=== PATIENT | female | born 1930 | race Caucasian/White ===

== ENCOUNTER 2019-08-05 10:11 | Emergency (ER) | payer MEDICARE ==
[2019-08-05] MEDS ORDERED: Sodium Chloride 0.9% 10 ML Syringe FLUSH PRN (11:06)
--- NOTE | 2019-08-05 11:30 | EDM.PDOC ---
ED HPI GENERAL MEDICAL PROBLEM - General Chief Complaint: Syncope Stated Complaint: SYNCOPE Time Seen by Provider: 08/05/19 11:06 Source of Information: Reports: Patient, RN Notes Reviewed History Limitations: Reports: No Limitations - History of Present Illness INITIAL COMMENTS - FREE TEXT/NARRATIVE: Patient is an 89-year-old female who presents to the ED with her granddaughter for the evaluation of a syncopal episode x1 this morning. The granddaughter states that her grandmother walked from her own apartment, as she lives on a floor below her daughter, and was acting normal, she went to sit at the dinner table, and was waiting to eat breakfast, when the patient slumped over in her chair, but she did not fall. They believe she was unresponsive for about 15 minutes. The granddaughter notes that her blood sugar about 1/2-hour before the incident was around 121, they have a pretty good log of blood pressures, that they have been taking at home, and she is anywhere from the low 100s systolically to 120s systolically. Granddaughter notes that patient has a history of dementia as well, and has issues with short-term memory. Granddaughter states that the patient also has been eating very little, and feels like she is a little bit more sleepy or fatigued than normal, she is denying any fever/chills, cough/shortness of breath, chest pain, or pain anywhere else in her body. Patient's primary care provider is Dr. Howard. The granddaughter states that she thinks she is on 5 different blood pressure medications, including carvedilol, hydrochlorothiazide, Spironolactone, and she could not remember the other names of the other medications. - Related Data Allergies Allergy/AdvReac Type Severity Reaction Status Date / Time No Known Allergies Allergy Verified 08/05/19 10:35 Past Medical History HEENT History: Reports: Impaired Vision Cardiovascular History: Reports: High Cholesterol, Hypertension [employer] WORK[employer] History: Reports: Endocrine/Metabolic History: Reports: Diabetes, Type II - Past Surgical History Female Surgical History: Reports: Hysterectomy Social & Family History - Tobacco Use Smoking Status *Q: Never Smoker - Caffeine Use Caffeine Use: Reports: Coffee - Recreational Drug Use Recreational Drug Use: No ED ROS GENERAL - Review of Systems Review Of Systems: See Below Constitutional: Reports: Fatigue (generalized over 1 week), Decreased Appetite (generalized, not increased from normal). Denies: Fever, Chills Respiratory: Denies: Shortness of Breath, Cough Cardiovascular: Reports: Blood Pressure Problem (lower blood pressures at home), Syncope (SEE HPI). Denies: Chest Pain, Lightheadedness GI/Abdominal: Denies: Abdominal Pain, Constipation, Diarrhea, Nausea, Vomiting : Reports: Other (no increased odor). Denies: Dysuria, Frequency, Urgency Neurological: Reports: Syncope (SEE HPI). Denies: Confusion, Dizziness, Headache - Physical Exam Exam: See Below Exam Limited By: No Limitations General Appearance: Alert, WD/WN, No Apparent Distress Eye Exam: Bilateral Eye: EOMI, Normal Inspection, PERRL Ears: Normal External Exam Nose: Normal Inspection Throat/Mouth: Normal Inspection, Normal Lips, Normal Teeth, Normal Gums, Normal Oropharynx, Normal Voice, No Airway Compromise Head Exam: Atraumatic, Normocephalic Neck: Normal Inspection Respiratory/Chest: No Respiratory Distress, Lungs Clear, Normal Breath Sounds, No Accessory Muscle Use, Chest Non-Tender Cardiovascular: Normal Peripheral Pulses, Regular Rate, Rhythm, No Murmur GI/Abdominal: Normal Bowel Sounds, Soft, Non-Tender, No Distention, No Mass Neuro Exam (Abbreviated): Alert, Oriented, Normal Cognition, No Motor/Sensory Deficits Extremities: Normal Inspection, Normal Capillary Refill Psychiatric: Normal Affect, Normal Mood Skin Exam: Warm, Dry, Intact, Normal Color, No Rash EKG INTERPRETATION EKG Date: 08/05/19 Time: 10:40 Rhythm: Other (Sinus bradycardia) Rate (Beats/Min): 44 [place]: LAD-Left Brandeis Deviation P-Wave: Present QRS: Normal ST-T: Normal QT: Normal Comparison: NA - No Prior EKG EKG Interpretation Comments: No obvious ischemia or acute ST changes noted, reviewed by myself and Dr. Gibbs. Course - Vital Signs Last Recorded V/S: Last Vital Signs Temp 97.1 F 08/05/19 10:27 Pulse 50 L 08/05/19 10:27 Resp 15 08/05/19 10:27 BP 122/43 L 08/05/19 10:27 Pulse Ox 100 08/05/19 10:27 - Orders/Labs/Meds Orders: Active Orders 24 hr Category Date Time Status EKG Documentation Completion [RC] STAT Care 08/05/19 11:08 Active Orthostatic Vital Signs [RC] ASDIRECTED Care 08/05/19 11:08 Active Peripheral IV Care [RC] . DIRECTED Care 08/05/19 11:08 Active Chest 1V Frontal [CR] Stat Exams 08/05/19 11:08 Ordered CBC WITH MANUAL DIFF [HEME] Stat Lab 08/05/19 10:44 Results UA W/MICROSCOPIC [URIN] Stat Lab 08/05/19 11:09 Ordered Sodium Chloride 0.9% [Normal Saline] 1,000 ml Med 08/05/19 11:49 Ordered IV ONETIME Sodium Chloride 0.9% [Saline Flush] Med 08/05/19 11:06 Active 10 ml FLUSH ASDIRECTED PRN Peripheral IV Insertion Adult [OM.PC] Stat Oth 08/05/19 11:06 Ordered Medication Orders Sodium Chloride (Normal Saline) 1,000 mls @ 999 mls/hr IV ONETIME ONE Stop: 08/05/19 12:49 Last Admin: 08/05/19 11:57 Dose: 999 mls/hr Documented by: ITA Sodium Chloride (Saline Flush) 10 ml FLUSH ASDIRECTED PRN PRN Reason: Keep Vein Open Last Admin: 08/05/19 11:25 Dose: 10 ml Documented by: ITA Labs: Laboratory Tests 08/05/19 08/05/19 08/05/19 Range/Units 10:44 10:44 10:44 WBC 7.35 (3.98-10.04) K/mm3 RBC 4.03 (3.98-5.22) M/mm3 Hgb 12.2 (11.2-15.7) gm/dl Hct 37.1 (34.1-44.9) % MCV 92.1 (79.4-94.8) fl MCH 30.3 (25.6-32.2) pg MCHC 32.9 (32.2-35.5) g/dl RDW Std Deviation 42.3 (36.4-46.3) fL Plt Count 204 (182-369) K/mm3 MPV 11.4 (9.4-12.3) fl Neutrophils % (Manual) 53 (40-60) % Band Neutrophils % 0 (0-10) % Lymphocytes % (Manual) 39 (20-40) % Atypical Lymphs % 0 % Monocytes % (Manual) 5 (2-10) % Eosinophils % (Manual) 2 (0.7-5.8) % Basophils % (Manual) 1 (0.1-1.2) Toxic Granulation Platelet Estimate Adequate Plt Morphology Comment See note Hypochromasia 1+ slight PT 11.2 (9.7-12.0) SECONDS INR 1.03 APTT 23 (22-31) SECONDS Sodium 140 (136-145) mEq/L Potassium 4.6 (3.5-5.1) mEq/L Chloride 103 (98-107) mEq/L Carbon Dioxide 24 (21-32) mEq/L Anion Gap 17.6 H (5-15) BUN 35 H (7-18) mg/dL Creatinine 1.5 H (0.55-1.02) mg/dL Est Cr Clr Drug Dosing 18.98 mL/min Estimated GFR (MDRD) 33 (>60) mL/min BUN/Creatinine Ratio 23.3 H (14-18) Glucose 181 H (83-115) mg/dL Calcium 9.5 (8.5-10.1) mg/dL Magnesium 2.2 (1.8-2.4) mg/dl Total Bilirubin 0.5 (0.2-1.0) mg/dL AST 16 (15-37) U/L ALT 25 (14-59) U/L Alkaline Phosphatase 54 (46-116) U/L Troponin I < 0.017 (0.00-0.056) ng/mL NT-Pro-B Natriuret Pep (0-450) pg/mL Total Protein 7.1 (6.4-8.2) g/dl Albumin 3.8 (3.4-5.0) g/dl Globulin 3.3 gm/dL Albumin/Globulin Ratio 1.2 (1-2) 08/05/19 Range/Units 10:44 WBC (3.98-10.04) K/mm3 RBC (3.98-5.22) M/mm3 Hgb (11.2-15.7) gm/dl Hct (34.1-44.9) % MCV (79.4-94.8) fl MCH (25.6-32.2) pg MCHC (32.2-35.5) g/dl RDW Std Deviation (36.4-46.3) fL Plt Count (182-369) K/mm3 MPV (9.4-12.3) fl Neutrophils % (Manual) (40-60) % Band Neutrophils % (0-10) % Lymphocytes % (Manual) (20-40) % Atypical Lymphs % % Monocytes % (Manual) (2-10) % Eosinophils % (Manual) (0.7-5.8) % Basophils % (Manual) (0.1-1.2) Toxic Granulation Platelet Estimate Plt Morphology Comment Hypochromasia PT (9.7-12.0) SECONDS INR APTT (22-31) SECONDS Sodium (136-145) mEq/L Potassium (3.5-5.1) mEq/L Chloride (98-107) mEq/L Carbon Dioxide (21-32) mEq/L Anion Gap (5-15) BUN (7-18) mg/dL Creatinine (0.55-1.02) mg/dL Est Cr Clr Drug Dosing mL/min Estimated GFR (MDRD) (>60) mL/min BUN/Creatinine Ratio (14-18) Glucose (83-115) mg/dL Calcium (8.5-10.1) mg/dL Magnesium (1.8-2.4) mg/dl Total Bilirubin (0.2-1.0) mg/dL AST (15-37) U/L ALT (14-59) U/L Alkaline Phosphatase (46-116) U/L Troponin I (0.00-0.056) ng/mL NT-Pro-B Natriuret Pep 236 (0-450) pg/mL Total Protein (6.4-8.2) g/dl Albumin (3.4-5.0) g/dl Globulin gm/dL Albumin/Globulin Ratio (1-2) Meds: Medications Generic Name Dose Route Start Last Admin Trade Name Freq PRN Reason Stop Dose Admin Sodium Chloride 1,000 mls @ 999 mls/hr 08/05/19 11:49 08/05/19 11:57 Normal Saline IV 08/05/19 12:49 999 mls/hr ONETIME ONE Administration Sodium Chloride 10 ml 08/05/19 11:06 08/05/19 11:25 Saline Flush FLUSH 10 ml ASDIRECTED PRN Administration Keep Vein Open - Re-Assessments/Exams Free Text/Narrative Re-Assessment/Exam: 08/05/19 11:31 Patient presents to the ED for the evaluation of a syncopal episode x1. I do suspect this is related to blood pressure medication however have ordered labs to check other worrisome abnormalities. EKG does demonstrate bradycardia, but normal P waves are noted, there is no third-degree block noted. This was reviewed by Dr. Gibbs and myself. 08/05/19 11:43 We did get the med list from the pharmacy, patient is on lovastatin 80 mg, carvedilol 6.25 mg, losartan 100 mg, valsartan 80 mg, spironolactone 25 mg. We will likely cut the carvedilol out, if work-up in the ER is unremarkable. 08/05/19 11:50 CBC appears to be within normal limits, she is not anemic. Anion gap is elevated at 17.6, BUN elevated at 35, creatinine elevated at 1.5, GFR decreased at 33. Patient will get 1 L of fluids, for dehydration/malnutrition, and will likely have her follow-up with her regular care provider on Thursday as scheduled. Departure - Departure Time of Disposition: 12:18 Disposition: Home, Self-Care 01 Condition: Good Clinical Impression: Cardiac related syncope - Discharge Information *PRESCRIPTION DRUG MONITORING PROGRAM REVIEWED*: No *COPY OF PRESCRIPTION DRUG MONITORING REPORT IN PATIENT ALFRED: No Instructions: Syncope, [id number] Referrals: Yann Howard MD [Primary Care Provider] - Forms: ED Department Discharge Additional Instructions: You were evaluated in the ER for your syncopal episode at home today. Your laboratory evaluation demonstrated no acute infection, You were slightly dehydrated; you did receive a liter of fluids for this. Your EKG and chest x-ray were also within normal limits. It is highly likely that your syncopal episode is due to the carvedilol medication. You will need to stop this medication; this should hopefully fix the problem. Carvedilol is a beta-sravan; which is a medication that helps to control your blood pressure, but also lowers your heart rate. This is what is happening with you. Your heart rate is too low; when your heart rate and blood pressure are too low, there isn't enough blood to perfuse the brain, and the body compensates by passing out. This is likely what happened this morning. Please keep a close eye on your blood pressures over the weekend; it is okay if they are a little bit higher, and this may actually benefit you as it will help prevent further issues from syncope due to too low of a blood pressure. Recommend that you keep your appointment with Dr. Howard on Thursday for close follow up, he was called and made aware of today's visit. Please return to the ED at anytime if your symptoms change or worsen. Sepsis Event Note (ED) - Evaluation Sepsis Screening Result: No Definite Risk - Focused Exam Vital Signs: Vital Signs Temp Pulse Resp BP Pulse Ox 08/05/19 10:27 97.1 F 50 L 15 122/43 L 100 - My Orders Last 24 Hours: My Active Orders 08/05/19 10:44 CBC WITH MANUAL DIFF [HEME] Stat 08/05/19 11:06 Sodium Chloride 0.9% [Saline Flush] 10 ml FLUSH ASDIRECTED PRN Peripheral IV Insertion Adult [OM.PC] Stat 08/05/19 11:08 EKG Documentation Completion [RC] STAT Orthostatic Vital Signs [RC] ASDIRECTED Peripheral IV Care [RC] . DIRECTED Chest 1V Frontal [CR] Stat 08/05/19 11:09 UA W/MICROSCOPIC [URIN] Stat 08/05/19 11:49 Sodium Chloride 0.9% [Normal Saline] 1,000 ml IV ONETIME - Assessment/Plan Last 24 Hours: My Active Orders 08/05/19 10:44 CBC WITH MANUAL DIFF [HEME] Stat 08/05/19 11:06 Sodium Chloride 0.9% [Saline Flush] 10 ml FLUSH ASDIRECTED PRN Peripheral IV Insertion Adult [OM.PC] Stat 08/05/19 11:08 EKG Documentation Completion [RC] STAT Orthostatic Vital Signs [RC] ASDIRECTED Peripheral IV Care [RC] . DIRECTED Chest 1V Frontal [CR] Stat 08/05/19 11:09 UA W/MICROSCOPIC [URIN] Stat 08/05/19 11:49 Sodium Chloride 0.9% [Normal Saline] 1,000 ml IV ONETIME
[2019-08-05] MEDS ORDERED: Sodium Chloride 0.9% 1,000 ML IV ONE (11:49)
--- NOTE | 2019-08-05 12:24 | CR ---
Chest: PA view of the chest was obtained. Comparison: No prior chest imaging is available. Heart size and mediastinum are normal. Scoliosis is noted within the spine with mild scattered endplate osteophytes. Lungs are clear with no acute parenchymal change. Impression: 1. Nothing acute is appreciated on PA chest x-ray. Diagnostic code #2 This report was dictated in MDT
== END 2019-08-05 13:25 | disposition home or self-care (01) ==
LOC: JD.ED 10:11
DX: R55 Syncope and collapse (principal); E11.9 Type 2 diabetes mellitus without complications
CPT/HCPCS: 36415; 71045; 80053; 83735; 83880; 84484; 85007; 85027; 85610; 85730; 93005; 96360; 99284; J7030; 93010; 99283

== ENCOUNTER 2019-08-29 18:33 | Emergency (ER) | payer MEDICARE, MEDICAID, OTHER ==
[2019-08-29] MEDS ORDERED: Sodium Chloride 0.9% 10 ML Syringe FLUSH PRN ×2 (18:45→20:47)
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
[2019-08-29] MEDS ORDERED: Iopamidol 755 Mg/ML 100 ML Bottle IVPUSH ONE (20:47)
[2019-08-29] MEDS ORDERED: Sodium Chloride 0.9% 45 ML IV SCH (21:00)
--- NOTE | 2019-08-30 06:58 | CT ---
CT angiogram of the brain Technique: Multiple axial sections through the brain were obtained. Intravenous contrast was given. Multiple MIP images were obtained. Findings: Dominant right vertebral artery is seen. Distal right vertebral artery shows diffuse irregularity with mild narrowing. There is approximately narrowing of 40-50 percent. Basilar artery is small but patent. Both posterior artery shows mild atheromatous irregularity with mild diffuse narrowing on the right side. No focal stenosis or occlusion is seen. Atherosclerotic calcification seen within the carotid siphon. Aneurysm is suggested within the junction of the internal carotid artery and middle cerebral artery. This aneurysm measures around 7-8 mm in size. There is mild narrowing being seen within the carotid siphon on both sides causing stenosis in the range of 30-40 percent. Middle and anterior cerebral arteries show no focal occlusion or stenosis. Impression: 1. Diffuse atherosclerotic change seen intracranially as described above. 2. 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 Diagnostic code #3 This report was dictated in MDT I agree with preliminary report from [facility], finalized on 08/29/19, 11:13 PM Central Daylight Time
--- NOTE | 2019-08-30 07:18 | CT ---
CT angiogram of neck Technique: Multiple axial sections through the neck were obtained. Intravenous contrast was given. Study performed during the arterial phase. Multiple MIP images were obtained. Comparison: No prior vascular imaging of the neck is available. Findings: Atherosclerotic change is noted within the thoracic aortic arch. Diffuse plaque with calcification and atheromatous irregularity noted within both innominate arteries. Diffuse atherosclerotic change is seen within the proximal common carotid arteries on both sides without focal stenosis. Scattered calcified plaque within both internal carotid arteries are seen. No plaque at the origin of the right internal carotid artery causes fairly significant stenosis which appears to be around 60-70 percent. Mild stenosis within the origin of the left internal carotid artery is seen due to plaque measuring less than 50 percent. Dominant right vertebral artery again noted. Small left sided vertebral artery is seen. Impression: 1. Diffuse atheromatous irregularity within both innominate arteries. Scattered calcified plaque seen. 2. Plaque causes stenosis within the proximal internal carotid arteries on both sides. Plaque on the right side appears to cause stenosis around 60-70 percent and on the left side less than 50 percent. 3. Dominant right vertebral artery with small left vertebral artery. Diagnostic code #3 This report was dictated in MDT I agree with preliminary report from [facility], finalized on 08/29/19, 11:08 PM Central Daylight Time
--- NOTE | 2019-08-30 07:24 | CT ---
Head CT Technique: Multiple axial sections through the brain were obtained. Intravenous contrast was not utilized. Comparison: No previous intracranial imaging is available. Findings: Old infarct is noted within the right cerebellar hemisphere. Ventricles along with basal cisterns and sulci over the convexities are moderately prominent. Diminished density is noted within portions of the periventricular white matter which is most likely due to small vessel ischemic demyelination change. Several old lacunar infarcts are noted within the left basal ganglia. No other abnormal parenchymal densities are seen. No evidence of intracranial hemorrhage. No midline shift or mass-effect is appreciated. Bone window settings were reviewed. Atherosclerotic calcification is seen within the carotid siphon. Visualized mastoid sinuses and paranasal sinuses show nothing acute. No acute calvarial finding is seen. Impression: 1. Diffuse senescent change as described above. 2. No acute intracranial abnormality is appreciated. Diagnostic code #2 This report was dictated in MDT MTDD
== END 2019-08-29 23:26 ==
LOC: JD.ED 18:33
DX: I63.9 Cerebral infarction, unspecified (principal); R40.2410 Glasgow coma scale score 13-15, unspecified time; R29.705 NIHSS score 5; I10 Essential (primary) hypertension; E78.00 Pure hypercholesterolemia, unspecified; E11.9 Type 2 diabetes mellitus without complications; Z88.8 Allergy status to other drugs, medicaments and biological substances; Z79.899 Other long term (current) drug therapy; Z79.84 Long term (current) use of oral hypoglycemic drugs; Z20.828 Contact with and (suspected) exposure to other viral communicable diseases
CPT/HCPCS: 36415; 70450; 70496; 70498; 80053; 81001; 82962; 84484; 85025; 85610; 85730; 93005; 99285; U0002; 93010

== ENCOUNTER 2020-01-24 08:46 | Day surgery (SDC) | payer MEDICARE, MEDICAID ==
[~2020-01-24 08:46] MED LIST: Cefuroxime 10 MG/ML SYRINGE EYERT SCH; Lidocaine 1% PF 2 ML SDV INJECT SCH; Pilocarpine 4% Ophth Soln 15 ML Bot EYERT SCH
--- NOTE | 2020-01-24 09:01 | PCM.PREANE ---
Preanesthetic Assessment - Anesthesia/Transfusion/Family Hx Anesthesia History: Prior Anesthesia Without Reaction Family History of Anesthesia Reaction: No Transfusion History: No Prior Transfusion(s) - Review of Systems General: No Symptoms Pulmonary: Other (cough) Cardiovascular: Other (HTN) Gastrointestinal: Other (GERD) Neurological: Other (rupa stroke in August) Other: Reports: Diabetes, Thyroid Problems - Physical Assessment NPO Status Date: 01/23/20 NPO Status Time: 18:00 Weight: 46.266 kg ASA Class: 3 Mental Status: Alert & Oriented x3 Airway Class: Mallampati = 2 Dentition: Reports: Edentulous Thyro-Mental Finger Breadths: 3 Mouth Opening Finger Breadths: 3 ROM/Head Extension: Full Lungs: Clear to Auscultation, Normal Respiratory Effort Cardiovascular: Regular Rate, Regular Rhythm - Allergies Allergies/Adverse Reactions: Allergies Allergy/AdvReac Type Severity Reaction Status Date / Time lisinopril Allergy Severe Other Verified 01/23/20 12:26 - Blood Blood Available: No Product(s) Available: None - Anesthesia Plan Pre-Op Medication Ordered: None - Acknowledgements Anesthesia Type Planned: MAC Pt an Appropriate Candidate for the Planned Anesthesia: Yes Alternatives and Risks of Anesthesia Discussed w Pt/Guardian: Yes Pt/Guardian Understands and Agrees with Anesthesia Plan: Yes PreAnesthesia Questionnaire HEENT History: Reports: Impaired Vision Cardiovascular History: Reports: High Cholesterol, Hypertension [employer] History: Reports: Neurological History: Reports: CVA Endocrine/Metabolic History: Reports: Diabetes, Type II - Past Surgical History Female Surgical History: Reports: Hysterectomy - HOME MEDS Home Medications: Home Meds Cholecalciferol (Vitamin D3) [Vitamin D3] 1,000 unit PO DAILY 08/05/19 [History] Ezetimibe [Zetia] 10 mg PO DAILY 08/05/19 [History] Glimepiride 1 mg PO DAILY 08/05/19 [History] Lovastatin 80 mg PO DAILY 08/05/19 [History] Multivitamin [Multivitamins] 1 tab PO DAILY 08/05/19 [History] NIFEdipine [Procardia Xl] 60 mg PO DAILY 08/05/19 [History] Sertraline [Zoloft] 50 mg PO DAILY 08/05/19 [History] Spironolactone [Aldactone] 25 mg PO DAILY 08/05/19 [History] carvediloL [Carvedilol] 3.125 mg PO BID 08/05/19 [History] hydroCHLOROthiazide [Hydrochlorothiazide] 25 mg PO DAILY 08/05/19 [History] traZODone HCl [Trazodone HCl] 50 mg PO QPM 08/05/19 [History] Aspirin 325 mg PO DAILY 01/23/20 [History] Clopidogrel Bisulfate [Plavix] 75 mg PO DAILY 01/23/20 [History] Garlic 1,000 mg PO DAILY 01/23/20 [History] Ginkgo Biloba 40 mg PO DAILY 01/23/20 [History] Losartan [Cozaar] 100 mg PO DAILY 01/23/20 [History] Lutein/Minerals/Vit A,C & E [Ocuvite] 1 tab PO DAILY 01/23/20 [History] Pantoprazole Sodium [Protonix] 20 mg PO DAILY 01/23/20 [History] - CURRENT (IN HOUSE) MEDS Current Meds: Current Medications Brimonidine Tartrate (Alphagan 0.2% Oph Soln) 0 ml EYERT ASDIRECTED SHAREE Stop: 01/24/20 18:00 Cefuroxime Sodium (Zinacef) 0 mg EYERT ASDIRECTED SHAREE Stop: 01/24/20 18:00 Lidocaine HCl (Xylocaine-Mpf 1%) 0 ml INJECT ASDIRECTED SHAREE Stop: 01/24/20 18:00 Phenylephrine HCl (Aldo-Synephrine 2.5% Ophth Soln) 0 ml EYERT ASDIRECTED SHAREE Stop: 01/24/20 18:00 Pilocarpine HCl (Pilocar 4% Ophth Soln) 0 ml EYERT ASDIRECTED SHAREE Stop: 01/24/20 18:00 Polymyxin/Trimethoprim Sulfate (Polytrim Ophth Soln) 0 ml EYERT ASDIRECTED SHAREE Stop: 01/24/20 18:00 Tetracaine HCl (Tetracaine 0.5% Steri-Unit Elle) 0 ml EYEBOTH ASDIRECTED SHAREE Stop: 01/24/20 18:00 Tropicamide (Mydriacyl 1% Ophth Soln) 0 ml EYERT ASDIRECTED SHAREE Stop: 01/24/20 18:00
[2020-01-24] MEDS: Polymyxin B/Trimethoprim 10 ML Bottle EYERT SCH ×3 (09:06→10:17)
[2020-01-24] MEDS: Brimonidine 0.2% Ophth Soln 5 ML Bottle EYERT SCH ×3 (09:11→10:17)
[2020-01-24] MEDS: Phenylephrine 2.5% Ophth Soln 2 ML Bot EYERT SCH ×5 (09:14→09:56)
[2020-01-24] MEDS: Tropicamide 1% Ophth Soln 15 ML Bottle EYERT SCH ×4 (09:17→09:45)
[2020-01-24] MEDS: Tetracaine HCl/PF 0.5% 4 ML Bottle EYEBOTH SCH ×2 (09:49→10:03)
--- NOTE | 2020-01-24 10:21 | PCM48HPAN ---
Post Anesthesia Note - EVALUATION WITHIN 48HRS OF ANESTHETIC Vital Signs in Normal Range: Yes Patient Participated in Evaluation: Yes Respiratory Function Stable: Yes Airway Patent: Yes Cardiovascular Function Stable: Yes Hydration Status Stable: Yes Pain Control Satisfactory: Yes Nausea and Vomiting Control Satisfactory: Yes Mental Status Recovered: Yes Vital Signs: Last Vital Signs Temp 36.2 C 01/24/20 08:55 Pulse 64 01/24/20 08:55 Resp 16 01/24/20 08:55 BP 134/55 L 01/24/20 08:55 Pulse Ox 100 01/24/20 08:55
== END 2020-01-24 10:31 | disposition home or self-care (01) ==
LOC: JD.SDS 08:46
PROVIDERS: ATTEND Ophthalmology
DX: E11.36 Type 2 diabetes mellitus with diabetic cataract (principal); H25.813 Combined forms of age-related cataract, bilateral; F32.9 Major depressive disorder, single episode, unspecified; E78.00 Pure hypercholesterolemia, unspecified; I10 Essential (primary) hypertension; F41.9 Anxiety disorder, unspecified; Z98.890 Other specified postprocedural states; Z86.73 Personal history of transient ischemic attack (TIA), and cerebral infarction without residual deficits; Z88.8 Allergy status to other drugs, medicaments and biological substances; Z79.899 Other long term (current) drug therapy; Z79.82 Long term (current) use of aspirin; Z79.84 Long term (current) use of oral hypoglycemic drugs
CPT/HCPCS: 66984; C1780; J0697; J2001

== ENCOUNTER 2020-03-08 13:04 | Day surgery (SDC) | payer MEDICARE, MEDICAID ==
[2020-03-08] MEDS: Polymyxin B/Trimethoprim 10 ML Bottle EYELF SCH ×3 (12:59→14:58)
[2020-03-08] MEDS: Brimonidine 0.2% Ophth Soln 5 ML Bottle EYELF SCH ×3 (13:01→14:00)
[2020-03-08] MEDS: Phenylephrine 2.5% Ophth Soln 15 ML Bot EYELF SCH ×3 (13:03→13:30)
[~2020-03-08 13:04] MED LIST changes: +Brimonidine 0.2% Ophth Soln 5 ML Bottle EYELF SCH; +Cefuroxime 10 MG/ML SYRINGE EYELF SCH; -Cefuroxime 10 MG/ML SYRINGE EYERT SCH; +Phenylephrine 2.5% Ophth Soln 15 ML Bot EYELF SCH; +Pilocarpine 4% Ophth Soln 15 ML Bot EYELF SCH; -Pilocarpine 4% Ophth Soln 15 ML Bot EYERT SCH; +Polymyxin B/Trimethoprim 10 ML Bottle EYELF SCH; +Tetracaine HCl/PF 0.5% 4 ML Bottle EYEBOTH SCH; +Tropicamide 1% Ophth Soln 15 ML Bottle EYELF SCH
[2020-03-08] MEDS: Tropicamide 1% Ophth Soln 15 ML Bottle EYELF SCH ×2 (13:05→13:09)
--- NOTE | 2020-03-08 13:19 | PCM.PREANE ---
Preanesthetic Assessment - Procedure Proposed Procedure: Left eye cataract extraction with IOL - Anesthesia/Transfusion/Family Hx Anesthesia History: Prior Anesthesia Without Reaction Family History of Anesthesia Reaction: No Transfusion History: No Prior Transfusion(s) - Review of Systems General: No Symptoms Pulmonary: No Symptoms Cardiovascular: Dyspnea on Exertion Gastrointestinal: No Symptoms Neurological: Difficulty Walking, Weakness (hands and left leg) Other: Reports: Diabetes (gluco check 129) - Physical Assessment NPO Status Date: 03/09/20 NPO Status Time: 08:00 Height: 1.7 m Weight: 46.266 kg ASA Class: 3 Mental Status: Alert & Oriented x3 Airway Class: Mallampati = 1 Dentition: Reports: Dentures Thyro-Mental Finger Breadths: 3 Mouth Opening Finger Breadths: 3 ROM/Head Extension: Full Lungs: Clear to Auscultation, Normal Respiratory Effort Cardiovascular: Regular Rate, Regular Rhythm - Allergies Allergies/Adverse Reactions: Allergies Allergy/AdvReac Type Severity Reaction Status Date / Time licorice root Allergy Swelling Uncoded 01/24/20 09:21 - Blood Blood Available: No Product(s) Available: None - Anesthesia Plan Pre-Op Medication Ordered: Beta Chad Beta Chad: Carvedilol Med Last Dose Date: 03/08/20 Med Last Dose Time: 09:00 - Acknowledgements Pt an Appropriate Candidate for the Planned Anesthesia: Yes Alternatives and Risks of Anesthesia Discussed w Pt/Guardian: Yes Pt/Guardian Understands and Agrees with Anesthesia Plan: Yes PreAnesthesia Questionnaire HEENT History: Reports: Impaired Vision Cardiovascular History: Reports: High Cholesterol, Hypertension [employer] History: Reports: Neurological History: Reports: CVA Endocrine/Metabolic History: Reports: Diabetes, Type II - Past Surgical History Female Surgical History: Reports: Hysterectomy - HOME MEDS Home Medications: Home Meds Cholecalciferol (Vitamin D3) [Vitamin D3] 1,000 unit PO DAILY 08/05/19 [History] Ezetimibe [Zetia] 10 mg PO DAILY 08/05/19 [History] Glimepiride 1 mg PO DAILY 08/05/19 [History] Lovastatin 80 mg PO DAILY 08/05/19 [History] Multivitamin [Multivitamins] 1 tab PO DAILY 08/05/19 [History] NIFEdipine [Procardia Xl] 60 mg PO DAILY 08/05/19 [History] Sertraline [Zoloft] 50 mg PO DAILY 08/05/19 [History] Spironolactone [Aldactone] 25 mg PO DAILY 08/05/19 [History] carvediloL [Carvedilol] 3.125 mg PO BID 08/05/19 [History] hydroCHLOROthiazide [Hydrochlorothiazide] 25 mg PO DAILY 08/05/19 [History] traZODone HCl [Trazodone HCl] 50 mg PO QPM 08/05/19 [History] Aspirin 325 mg PO DAILY 01/23/20 [History] Clopidogrel Bisulfate [Plavix] 75 mg PO DAILY 01/23/20 [History] Garlic 1,000 mg PO DAILY 01/23/20 [History] Ginkgo Biloba 40 mg PO DAILY 01/23/20 [History] Losartan [Cozaar] 100 mg PO DAILY 01/23/20 [History] Lutein/Minerals/Vit A,C & E [Ocuvite] 1 tab PO DAILY 01/23/20 [History] Pantoprazole Sodium [Protonix] 20 mg PO DAILY 01/23/20 [History] - CURRENT (IN HOUSE) MEDS Current Meds: Current Medications Brimonidine Tartrate (Alphagan 0.2% Ophth Soln) 0 ml EYELF ASDIRECTED SHAREE Stop: 03/08/20 18:00 Cefuroxime Sodium (Zinacef) 0 mg EYELF ASDIRECTED SHAREE Stop: 03/08/20 18:00 Lidocaine HCl (Xylocaine-Mpf 1%) 0 ml INJECT ASDIRECTED SHAREE Stop: 03/08/20 18:00 Phenylephrine HCl (Aldo-Synephrine 2.5% Ophth Soln) 0 ml EYELF ASDIRECTED SHAREE Stop: 03/08/20 18:00 Pilocarpine HCl (Pilocar 4% Ophth Soln) 0 ml EYELF ASDIRECTED SHAREE Stop: 03/08/20 18:00 Polymyxin/Trimethoprim Sulfate (Polytrim Ophth Soln) 0 ml EYELF ASDIRECTED SHAREE Stop: 03/08/20 18:00 Tetracaine HCl (Tetracaine 0.5% Steri-Unit Elle) 0 ml EYEBOTH ASDIRECTED SHAREE Stop: 03/08/20 18:00 Tropicamide (Mydriacyl 1% Ophth Soln) 0 ml EYELF ASDIRECTED SHAREE Stop: 03/08/20 18:00 Discontinued Medications Brimonidine Tartrate (Alphagan 0.2% Ophth Soln) 0 ml EYELF ASDIRECTED SHAREE Stop: 03/06/20 18:00 Cefuroxime Sodium (Zinacef) 0 mg EYELF ASDIRECTED SHAREE Stop: 03/06/20 18:00 Lidocaine HCl (Xylocaine-Mpf 1%) 0 ml INJECT ASDIRECTED SHAREE Stop: 03/06/20 18:00 Phenylephrine HCl (Aldo-Synephrine 2.5% Ophth Soln) 0 ml EYELF ASDIRECTED SHAREE Stop: 03/06/20 18:00 Pilocarpine HCl (Pilocar 4% Ophth Soln) 0 ml EYELF ASDIRECTED SHAREE Stop: 03/06/20 18:00 Polymyxin/Trimethoprim Sulfate (Polytrim Ophth Soln) 0 ml EYELF ASDIRECTED SHAREE Stop: 03/06/20 18:00 Tetracaine HCl (Tetracaine 0.5% Steri-Unit Elle) 0 ml EYEBOTH ASDIRECTED SHAREE Stop: 03/06/20 18:00 Tropicamide (Mydriacyl 1% Ophth Soln) 0 ml EYELF ASDIRECTED SAHREE Stop: 03/06/20 18:00
[2020-03-08] MEDS: Tetracaine HCl/PF 0.5% 4 ML Bottle EYEBOTH SCH ×2 (13:24→13:36)
--- NOTE | 2020-03-08 13:57 | PCM48HPAN ---
Post Anesthesia Note - EVALUATION WITHIN 48HRS OF ANESTHETIC Vital Signs: Last Vital Signs Temp 36.5 C 03/08/20 13:00 Pulse 76 03/08/20 13:00 Resp 16 03/08/20 13:00 BP 149/57 H 03/08/20 13:00 Pulse Ox 98 03/08/20 13:00
--- NOTE | 2020-03-08 14:02 | PCM48HPAN ---
Post Anesthesia Note - EVALUATION WITHIN 48HRS OF ANESTHETIC Vital Signs in Normal Range: Yes Patient Participated in Evaluation: Yes Respiratory Function Stable: Yes Airway Patent: Yes Cardiovascular Function Stable: Yes Hydration Status Stable: Yes Pain Control Satisfactory: Yes Nausea and Vomiting Control Satisfactory: Yes Mental Status Recovered: Yes Vital Signs: Last Vital Signs Temp 36.5 C 03/08/20 13:00 Pulse 76 03/08/20 13:00 Resp 16 03/08/20 13:00 BP 149/57 H 03/08/20 13:00 Pulse Ox 98 03/08/20 13:00
== END 2020-03-08 14:12 | disposition home or self-care (01) ==
LOC: JD.SDS 13:04
PROVIDERS: ATTEND Ophthalmology
DX: E11.36 Type 2 diabetes mellitus with diabetic cataract (principal); H25.812 Combined forms of age-related cataract, left eye; H21.81 Floppy iris syndrome; H21.42 Pupillary membranes, left eye; E78.00 Pure hypercholesterolemia, unspecified; I10 Essential (primary) hypertension; Z86.73 Personal history of transient ischemic attack (TIA), and cerebral infarction without residual deficits; Z79.899 Other long term (current) drug therapy; Z98.890 Other specified postprocedural states; Z79.84 Long term (current) use of oral hypoglycemic drugs; Z79.82 Long term (current) use of aspirin
CPT/HCPCS: 66982; C1780; J0697; J2001

== ENCOUNTER 2021-08-07 18:20 | Emergency (ER) | payer MEDICARE, MEDICAID ==
[2021-08-07] MEDS ORDERED: Sodium Chloride 0.9% 10 ML Syringe FLUSH PRN ×2 (18:32→19:45)
[2021-08-07 19:09] LABS: ESTIMATED GFR 31 mL/min (>60)
[2021-08-07] MEDS ORDERED: Lactated Ringers 1,000 ML IV ONE (19:15)
[2021-08-07] MEDS ORDERED: Sodium Chloride 0.9% 100 ML IV SCH (19:45)
[2021-08-07] MEDS ORDERED: Iopamidol 755 Mg/ML 100 ML Bottle IVPUSH ONE (19:45)
== END 2021-08-07 21:42 | disposition home or self-care (01) ==
LOC: JD.ED 18:20
DX: G45.9 Transient cerebral ischemic attack, unspecified (principal); N39.0 Urinary tract infection, site not specified; E78.00 Pure hypercholesterolemia, unspecified; I10 Essential (primary) hypertension; E11.9 Type 2 diabetes mellitus without complications; Z86.73 Personal history of transient ischemic attack (TIA), and cerebral infarction without residual deficits; Z91.048 Other nonmedicinal substance allergy status; Z79.82 Long term (current) use of aspirin; Z79.02 Long term (current) use of antithrombotics/antiplatelets; Z79.899 Other long term (current) drug therapy
CPT/HCPCS: 36415; 70450; 70496; 70498; 71045; 80053; 81001; 82947; 83880; 84484; 85025; 85610; 87086; 93005; 96360; 96361; 99285; J3490; J7120; Q9967; 93010; 99284